=== PATIENT | male | born 1990 | race African-American/Black ===

== ENCOUNTER 2017-12-28 15:31 | Emergency (ER) | payer MEDICAID ==
[~2017-12-28] VITALS: Ht 188 cm; Wt 100.0 kg
[2017-12-28 16:04] VITALS: BP 133/82
== END 2017-12-28 18:29 | disposition left against medical advice (07) ==
LOC: ER 16:58
DX: N50.9 Disorder of male genital organs, unspecified (principal)
CPT/HCPCS: 99281